=== PATIENT | male | born 1995 | race Two or more races ===

== ENCOUNTER → 2016-07-20 | Day surgery (SDC) | payer OTHER ==
[2016-07-20] VITALS (10 sets, daily range): BP systolic 116–152; BP diastolic 55–87
[~2016-07-20] VITALS: Ht 177.8 cm; Wt 90.7 kg
[~2016-07-20] MED LIST: Bacitracin 50000 Units Vial ONE; Bupivacaine w/Epi 0.25% 30ml Vial INJ ONE; DiphenhydrAMINE 50mg/ml Inj IVP PRN; Hydromorphone 0.5mg/0.5ml inj IVP PRN; Ketorolac 30mg Inj IV PRN; Ketorolac 30mg Inj ONE; LR 1000ml 1,000 ML IVLG SCH; LR 1000ml ONE; Meperidine 25mg/ml Inj IV PRN; Metoclopramide 10mg/2ml Inj IVP PRN; Midazolam 2mg/2ml Inj ONE; Morphine Sulfate 10mg/ml Inj ONE; Morphine Sulfate 2mg/ml Inj IVP PRN; NO KNOWN MEDS; NS Irrig 1000ml ONE; Norco 5mg/325mg tab ORAL PRN; Propofol 10mg/ml 20ml IV ONE; Sterile Water Irrig 1000ml IRRIG ONE; ceFAZolin 1gm/50ml Premix 50 ML IV ONE; celeBREX 200mg Cap **SURGERY PATIENTS ONLY ORAL ONE; fentaNYL 100 mcg/2 mL IV ONE; oxyCONTIN 20mg tab ORAL ONE
--- NOTE | 2016-07-20 07:07 | Pre-Procedure Note/Attestation ---
Pre-Procedure Note/Attestation Complete Prior to Procedure Planned Procedure: right Procedure Narrative: clivcle orif Indications for Procedure Pre-Operative Diagnosis: right clivicle fracture Attestation I attest that I discussed the nature of the procedure; its benefits; risks and complications; and alternatives (and the risks and benefits of such alternatives ), prior to the procedure, with the patient (or the patient's legal field representatives director). I attest that, if there was a reasonable possibility of needing a blood transfusion, the patient (or the patient's legal field representatives director) was given the [facility] standardized written summary, pursuant to the [place] Blood Safety Act ([place] Health and Safety Code # 1645, as amended). I attest that I re-evaluated the patient just prior to the surgery and that there has been no change in the patient's H&P, except as documented below: HARRIET NUNEZ Jul 20, 2016 07:07
--- NOTE | 2016-07-20 07:07 | Operative Note - PDOC ---
Operative Note Operative Note Pre-op Diagnosis: right clivicle fracture Procedure: right clivicle orif Post-op Diagnosis: same as pre-op Operative Findings: consistent w/pre-op dx studies Anesthesia: general Specimen: none Complications: none Condition: stable Estimated Blood Loss: none Implant(s) used?: Yes HARRIET NUNEZ Jul 20, 2016 07:07
--- NOTE | 2016-07-20 09:05 | Anethesia Preoperative Eval ---
Anesthesia Pre-op PMH/ROS General Date of Evaluation: Jul 20, 2016 Time of Evaluation: 07:56 Anesthesiologist: Estuardo ASA Score: ASA 2 Mallampati Score Class I : Soft palate, uvula, fauces, pillars visible Class II: Soft palate, uvula, fauces visible Class III: Soft palate, base of uvula visible Class IV: Only hard plate visible Mallampati Classification: Class II Surgeon: Daryl Diagnosis: R clavicle Fx Surgical Procedure: ORIF of R clavicle Fx Anesthesia History: none Family History: no anesthesia problems Allergies: Coded Allergies: No Known Allergies (Unverified , 07/19/16) Medications: see eMAR Past Medical History Cardiovascular: Denies: CAD, HTN, PR, arrhythmia, other, valve dz Pulmonary: Denies: COPD, KAMRYN, asthma, other Gastrointestinal/Genitourinary: Denies: CRI, ESRD, GERD, other Neurologic/Psychiatric: Denies: CVA, TIA, dementia, depression/anxiety, other Endocrine: Denies: DM, hypothyroidism, other, steroids HEENT: Reports: other - R posttraumatic corneal scar, Denies: NENANA (L), NENANA (R), cataract (L), cataract (R), glaucoma Hematology/Immune: Denies: DVT, anemia, bleeding disorder, other Musculoskeletal/Integumentary: Denies: DDD, DJD, OA, RA, edema, other Other: other - overweight PMH Narrative: as above PSxH Narrative: None Anesthesia Pre-op Phys. Exam Physician Exam Last Vital Signs Date Time Temp Pulse Resp B/P Pulse Ox O2 Delivery O2 Flow Rate FiO2 07/20/16 07:15 97.9 77 20 127/65 100 Room Air Constitutional: NAD Neurologic: CN 2-12 intact Cardiovascular: RRR, no M/R/G Respiratory: CTA Gastrointestinal: S/NT/ND Airway Exam Mallampati Score: Class II MO: full Neck: flexible ROM: full Teeth: intact Dentures: no lower, no upper Anesthesia Pre-op A/P Labs see chart Risk Assessment & Plan Assessment: ASA 2 Plan: GA with LMA PONV prevention Status Change Before Surgery: No Pre-Antibiotics Drug: Ancef 2gr. Given Within 1 Hr of Incision: Yes Time Given: 08:26 BALTAZAR PRESSLEY M.D. Jul 20, 2016 09:05
--- NOTE | 2016-07-20 13:27 | Immediate Post-Op Evaluation ---
Immediate Post-Op Evalulation Immediate Post-Op Evalulation Procedure: ORIF of R clavicle Fx. Date of Evaluation: Jul 20, 2016 Time of Evaluation: 10:21 IV Fluids: 1100 Blood Products: none Estimated Blood Loss: 50 Urinary Output: none Blood Pressure Systolic: 136 Blood Pressure Diastolic: 48 Pulse Rate: 74 Respiratory Rate: 22 O2 Sat by Pulse Oximetry: 98 Temperature (Fahrenheit): 97.6 Pain Score (1-10): 2 Nausea: No Vomiting: No Complications none Patient Status: reacts, patent, none Hydration Status: adequate BALTAZAR PRESSLEY M.D. Jul 20, 2016 13:27
--- NOTE | 2016-07-20 13:29 | 48 Hour Post Anesthesia Eval ---
Post Anesthesia Evaluation Procedure: ORIF of R clavicle Fx. Date of Evaluation: Jul 20, 2016 Time of Evaluation: 13:28 Blood Pressure Systolic: 116 0: 68 Pulse Rate: 72 Respiratory Rate: 21 Temperature (Fahrenheit): 97.3 O2 Sat by Pulse Oximetry: 99 Airway: patent Nausea: No Vomiting: No Pain Intensity: 2 Hydration Status: adequate Cardiopulmonary Status: stable Mental Status/LOC: patient returned to baseline Follow-up Care/Observations: n/a Post-Anesthesia Complications: none Follow-up care needed: ready to discharge BALTAZAR PRESSLEY M.D. Jul 20, 2016 13:29
--- NOTE | 2016-07-20 14:13 | Diagnostic Imaging Report ---
Indication: Pain Comparison: None Findings: Images of the right clavicle obtained fluoroscopically in the operating room. Compression plate and several screws reducing a right clavicle fracture are noted. Impression: Intraoperative imaging
--- NOTE | 2016-07-21 04:17 | Operative Note - Dictated ---
DATE OF OPERATION: 07/20/2016 PREOPERATIVE DIAGNOSIS: Right clavicle malunion/nonunion. POSTOPERATIVE DIAGNOSIS: Right clavicle malunion/nonunion. PROCEDURE: Open reduction and internal fixation of right clavicle fracture. SURGEON: Thomas Brito M.D. ANESTHESIA: General. INDICATION FOR PROCEDURE: The patient is a pleasant gentleman who sustained a comminuted midshaft clavicle fracture. He had tried conservative treatment but continued to have continued pain particularly with all activities. It seems like there was minimal callus formation across the fracture site and the patient continued to have symptoms. Therefore we elected to undergo open reduction and internal fixation of the clavicle. Risks, limitations, expectations and complications related to procedure discussed in detail including continued pain, need for future surgery, risk of anesthesia, medical complications, DVT, PE, and mortality risks. All questions were addressed. Additionally risk of failure of the fixation, nonunion were also again addressed. DESCRIPTION OF PROCEDURE: After informed consent was obtained, the patient was brought to the operating room and placed under general anesthesia control. The patient then was carefully positioned in the beach-chair position. The right shoulder was prepped and draped in a sterile manner. Time-out was performed. Ancef administered. At this point, the anterior skin incision centered along the nonunion site was marked out, skin was injected with 0.25% Marcaine with epinephrine. The skin was then incised. Medial, lateral, and subcutaneous flaps were created. The deltotrapezius fascia was then incised. Subperiosteal dissection along the fracture site was performed. We were very careful to stay on the bone and not go of the bone to make sure that there is no neurovascular compromise. Once the fracture site was identified, rongeur was then placed into the primary fracture site and the fibrous tissue was removed. Once this was done, it seemed like there was only one main fracture site. The area where he had the comminuted butterfly fragment seemed to have been incorporated. At this point, a 10 hole plate was selected and placed. This was countered removing any extra bone and calcifications that present along the nonunion site. Once that was done, four screws were placed in both the distal and proximal fracture fragments. The bone that was removed was kept. Once he imaging studies showed good placement and fixation of the hardware, the wound was copiously irrigated. Bone was mixed with Compton putty and this was placed along the primary fracture site/nonunion site. Once that was done, the fascia was closed with 1-0 Vicryl suture, 2-0 Vicryl suture, and 3-0 Monocryl sutures. Steri-Strips, Dermabond compression dressing was applied. The patient was awoken and taken to the recovery room with stable signs. EBL: Minimal. COMPLICATIONS: None. SPECIMENS: None. IMPLANT: 1. Include a Carson clavicle plate. 2. Compton putty Thomas Brito M.D. DR: Carlita JOB#: [id number] CC: SANTOS
== END | disposition home or self-care (01) ==
LOC: SUR 06:31
DX: S42.021A Displaced fracture of shaft of right clavicle, initial encounter for closed fracture (principal); X58.XXXA Exposure to other specified factors, initial encounter; Y92.9 Unspecified place or not applicable; Y99.9 Unspecified external cause status; E66.3 Overweight
CPT/HCPCS: 23515; 73000; 76000; C1713; J0690; J1885; J2250; J2270; J2405; J2704; J3010; J7120; 94003; 94150